=== PATIENT | male | born 1940 | race Caucasian/White ===

== ENCOUNTER → 2016-09-15 | Day surgery (SDC) | payer BC ==
[~2016-09-15] VITALS: Ht 177.8 cm; Wt 104.3 kg
[~2016-09-15] MED LIST: DEMADEX20 MG PO; DULERA 100 MCG/13 GM INH; ISOSORBIDE MON120 MG PO; KLOR-CON 1010 MEQ PO; LEVOTHYROXINE0.2 M1 PO; LEVOTHYROXINE50 MCG PO; NORVASC2.5 MG PO; PACERONE 200 M200 M1 PO; PLAVIX 75 MG TA75 M1 PO; RANEXA500 MG PO; TRAZODONE HCL100 MG PO; XARELTO20 MG PO; ZOCOR20 MG PO
--- NOTE | ~2016-09-15 | O ---
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 PROCEDURE: Bilateral lower lid ectropion repair with transconjunctival right lower lid and cheek lift. SURGEON: Ender Cowart M.D. [employer] SUPERVISOR: None. ANESTHESIA: MAC. COMPLICATIONS: None. 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 He presents today for a bilateral lower lid ectropion repair combined with a transconjunctival right lower lid and cheek lift. Informed consent was obtained to include but not limited to the potential risk for loss of vision, bleeding, infection, failure to improve the problem, and the potential need for further surgery or treatment. DESCRIPTION OF PROCEDURE: The patient was taken to the operating room where 2% Xylocaine with epinephrine mixed with equal parts of 0.75% Marcaine with Wydase was administered transcutaneously and transconjunctivally to each lower lid and lateral canthus. In addition, on the right side, the right cheek and the right infratemporal fossa were anesthetized. The patient was subsequently prepped and draped in the usual sterile fashion. The left lateral canthus was then clamped with a Mitchell clamp, following which a sharp canthotomy and cantholysis was performed. Hemostasis was then re-achieved. A tarsal strip was then prepared laterally removing the lash bearing portion of the redundant lid margin and the redundant tarsal plate. Hemostasis was once more re-achieved. [facility] [address] [place] [address] OPERATIVE REPORT Name: JOSE ROBERTOGUERRERO Kady Room #: REG [facility].#: [id number] Admission: 09/15/16 Attend Phys: Ender Cowart MD Discharge: Date of : 36 Report #: [id number] The tarsal strip was then secured to the internal portion of the lateral orbital tubercle with 2 interrupted 5-0 Prolene sutures. The subcutaneous structures and the skin were then closed with interrupted 6-0 plain gut sutures. Attention was then turned to the right side. A Familia clamp was placed at the right lateral canthus, following which a sharp canthotomy, and cantholysis was performed. A tarsal strip was then prepared laterally, removing the lash bearing portion of the redundant lid margin and the redundant tarsal plate. Hemostasis was once more re-achieved. A transconjunctival incision was then made below the inferior border of the tarsal plate and carried down into the premalar tissue sharply. Hemostasis was then re-achieved. The lower lid and cheek were then elevated together as a unit with multiple interrupted mattress 5-0 chromic sutures. The lower lid and cheek elevated well. The lower lid and cheek lift having been completed, attention was then returned to completion of the ectropion repair. The tarsal strip was then secured to the internal portion of the lateral orbital tubercle with 2 interrupted 5-0 Prolene sutures. The subcutaneous structures and the skin were then advanced and closed with interrupted 6-0 plain gut sutures. The wounds were then cleaned and dressed with erythromycin ophthalmic ointment, and the patient subsequently transported to the recovery area having tolerated the procedures well with no anesthetic or operative complications being noted. By: [id number] Ender Cowart MD /nt
== END | disposition home or self-care (01) ==
LOC: OR 05:20
DX: H02.102 Unspecified ectropion of right lower eyelid (principal); H02.105 Unspecified ectropion of left lower eyelid; H02.532 Eyelid retraction right lower eyelid; H02.202 Unspecified lagophthalmos right lower eyelid; H18.9 Unspecified disorder of cornea; J44.9 Chronic obstructive pulmonary disease, unspecified; I10 Essential (primary) hypertension; E78.00 Pure hypercholesterolemia, unspecified; Z87.891 Personal history of nicotine dependence; Z95.0 Presence of cardiac pacemaker; Z95.5 Presence of coronary angioplasty implant and graft; Z98.890 Other specified postprocedural states; Z98.42 Cataract extraction status, left eye; Z98.41 Cataract extraction status, right eye; Z96.1 Presence of intraocular lens
CPT/HCPCS: 50010; 50101; 50386; 50398; 51636; 56527; 56531; 62110; 62850; 70005